=== PATIENT | female | born 1955 | race African-American/Black ===

== ENCOUNTER 2020-12-28 09:05 | Emergency (ER) | payer OTHER ==
[~2020-12-28] VITALS: Ht 167.6 cm; Wt 70.3 kg
[~2020-12-28 09:05] MED LIST: B12INJ IM; BENTYL 20 MG TA20 M1 PO; CLOBETASOL EMOL15 GM TP; KEFLEX500 MG PO; LYRICA 50 MG50 MG PO; PEPCID40 MG PO; VITAMIN D 5050000 I1 PO; ZOFRAN ODT4 M1 PO; ZOFRAN ODT4 MG PO
[2020-12-28 10:19] LABS: HEMATOCRIT 23.9 % (37.0-47.0); HEMOGLOBIN 7.7 gm/dL (12.0-15.0); MCH 26.6 pg (26.0-34.0); MCHC 32.4 g/dL (28.0-37.0); MCV 82.2 fL (80.0-100.0); PLATELET COUNT 248 thou/uL (150-400); RBC 2.91 mil/uL (4.20-5.00); RDW 16.8 % (10.5-14.5); WBC 18.7 thou/uL (4.0-11.0)
[2020-12-28 10:24] LABS: CALCIUM 7.9 mg/dL (8.5-10.1); CREATININE 1.2 mg/dL (0.6-1.0); POTASSIUM 4.8 mmol/L (3.5-5.1)
[2020-12-28 10:34] LABS: ALBUMIN 1.8 g/dL (3.4-5.0); TOTAL BILIRUBIN 0.3 mg/dL (0.2-1.0); TOTAL PROTEIN 5.1 g/dL (6.4-8.2); TROPONIN-I 0.07 ng/mL (<0.06)
[2020-12-28 10:45] LABS: ABSOLUTE NEUTROPHILS 14.4 thou/uL (1.4-8.2); PLATELET ESTIMATE NORMAL
[2020-12-28] MEDS ORDERED: CEFDINIR300 MG PO (10:50)
[2020-12-28 11:14] VITALS: BP 155/72
--- NOTE | 2020-12-30 07:21 | EKG ---
[address] [address] ELECTROCARDIOGRAM REPORT Name: MAKENNA MURRELL Room #: [facility]#: [id number] Admission: 12/28/20 Attend Phys: Discharge: 12/28/20 Date of : 53 Report #: [id number] [facility] ED Test Date: 2020-12-28 Test Time: 09:12:52 Pat Name: MAKENNA MURRELL Department: Room: Gender: F [employer] C[employer]: TIMOTHY : 1955 Requested By: Francis Cruz Order Number: [id number] MD: Myles Crooks Measurements Intervals [place] Rate: 92 P: 71 GA: 178 QRS: 42 QRSD: 101 T: 34 QT: 357 QTc: 442 Interpretive Statements Sinus rhythm Abnormal inferior Q waves Compared to ECG 11/23/2015 18:15:16 Inferior Q waves now present Q waves now present Electronically Signed On 12-30-2020 7:21:06 CDT by Myles Crooks [email or web address] <ELECTRONICALLY SIGNED> By: Myles Crooks MD, [facility] 12/30/20720 1 1 Myles Crooks MD, FACC /EPI
== END 2020-12-28 11:50 | disposition left against medical advice (07) ==
LOC: ER 09:05
PROVIDERS: Emergency Medicine
DX: D64.9 Anemia, unspecified (principal); D72.829 Elevated white blood cell count, unspecified; R00.1 Bradycardia, unspecified; E11.40 Type 2 diabetes mellitus with diabetic neuropathy, unspecified; F17.210 Nicotine dependence, cigarettes, uncomplicated; Z88.5 Allergy status to narcotic agent; Z88.0 Allergy status to penicillin; Z91.041 Radiographic dye allergy status; Z95.1 Presence of aortocoronary bypass graft